=== PATIENT | female | born 1960 | race Caucasian/White ===

== ENCOUNTER 2024-03-10 06:27 | Day surgery (SDC) | payer BC, SELFPAY ==
[2024-03-10 08:00] VITALS: BMI 22.0
[2024-03-10 08:02] VITALS: BMI 22.0
[2024-03-10 08:03] VITALS: BP 101/64
[2024-03-10 09:40] VITALS: BP 96/60
[2024-03-10 09:45] VITALS: BP 86/51
[2024-03-10 10:00] VITALS: BP 106/66
[2024-03-10 10:10] VITALS: BP 109/59
== END 2024-03-10 10:38 | disposition home or self-care (01) ==
LOC: GI 06:27
PROVIDERS: ATTENDING PHYSICIAN Internal Medicine Gastroenterology
DX: Z12.11 Encounter for screening for malignant neoplasm of colon (principal); K64.0 First degree hemorrhoids; Z98.890 Other specified postprocedural states; Z86.010 Personal history of colon polyps
CPT/HCPCS: 45380; 88305